=== PATIENT | female | born 1930 | race Caucasian/White ===

== ENCOUNTER 2017-10-27 09:44 | Emergency (ER) | payer MEDICARE, OTHER ==
[~2017-10-27] VITALS: Ht 165.1 cm; Wt 55.0 kg
[~2017-10-27 09:44] MED LIST: ALPR0.254 PO; APIX5TAB3 PO; ASPI-482 PO; CHOL100013 PO; CLOP75TA PO; DILT180C2 PO; DOCU100C28 PO; DULO60CA6 PO; ESOM40CA PO; FLUT1DIS3 IH; FOLI1TAB16 PO; FURO20TA3 PO; INDA1.25 PO; IPRA3AMP29 IH; LEVO25TA4 PO; LEVO500T8 PO; MAGN2400 PO; MAGN400C PO; METH25VI27 IJ; METO-239 PO; MORP15TA3 PO; OMEG1CAP6 PO; POTA20TA4 PO; PRAV40TA2 PO; PRED5TAB19 PO
--- NOTE | 2017-10-27 10:14 | PHYS DOC ---
Past History Past Medical History: Arthritis, CVA, Hypertension, Other Past Surgical History: Hip Replacement, Hysterectomy Alcohol Use: None Drug Use: None Laceration Repair Lac Repair Indication: right hand laceration between 1st and 2nd digits Procedure: The patient was placed in the appropriate position and anesthesia around the laceration with 2% lidocaine. The area was then cleaned and the clot was removed. The laceration was closed with five 4-0 nylon sutures. The wound area was then dressed. Total repaired wound length: 4cm The patient tolerated the procedure well Complications: none. Adult General Chief Complaint Chief Complaint: LACERATION/AVULSION [facility] Patient is an 87-year-old female who presents for a right hand injury with swelling and a laceration. The patient states that she fell and hit her hand on the way down. She is here with a neighbor who states that he found her with the injury and does not know exactly what happened. She has significant rheumatoid arthritis in both hands so has swelling at baseline. She is unsure if she is up- to-date with her tetanus. There is a laceration to the right hand between the first and second digits and there is some ecchymosis to the back of the hand and some swelling. She is alert, calm, and appears to be in no distress. She states she is UTD with immunizations. She denies hitting her head and has no SONG or neck pain. Review of Systems Review of Systems Constitutional: Denies fever or chills [] Eyes: Denies change in visual acuity, redness, or eye pain [] HENT: Denies nasal congestion or sore throat [] Respiratory: Denies cough or shortness of breath [] Cardiovascular: No additional information not addressed in HPI [] GI: Denies abdominal pain, nausea, vomiting, bloody stools or diarrhea [] : Denies dysuria or hematuria [] Musculoskeletal: Denies back pain [] right hand swelling, pain, and laceration between 1st and 2nd fingers Integument: Denies rash or skin lesions [] Neurologic: Denies headache, focal weakness or sensory changes [] Endocrine: Denies polyuria or polydipsia [] All other systems were reviewed and found to be within normal limits, except as documented in this note. Allergies Allergies Allergies Coded Allergies Type Severity Reaction Last Updated Verified Penicillins Allergy Unknown 12/30/13 Yes Physical Exam Physical Exam Constitutional: Well developed, well nourished, no acute distress, non-toxic appearance. [] HENT: Normocephalic, atraumatic, bilateral external ears normal, oropharynx moist, no oral exudates, nose normal. [] Eyes: PERRLA, EOMI, conjunctiva normal, no discharge. [] Neck: Normal range of motion, no tenderness, supple, no stridor. [] Cardiovascular:Heart rate regular rhythm, no murmur [] Lungs & Thorax: Bilateral breath sounds clear to auscultation [] Abdomen: Bowel sounds normal, soft, no tenderness, no masses, no pulsatile masses. [] Skin: Warm, dry, no erythema, no rash. [] Back: No tenderness, no CVA tenderness. [] Extremities: No tenderness, no cyanosis, no clubbing, ROM intact, no edema. [] 4cm laceration/skin tear with dark clot in place between 1st and 2nd digits of right hand, ecchymosis and swelling to right hand on extensor surface near 1st and 2nd metacarpals, no tendon or vascular injury noted Neurologic: Alert and oriented X 3, normal motor function, normal sensory function, no focal deficits noted. [] Psychologic: Affect normal, judgement normal, mood normal. [] EKG EKG [] Radiology/Procedures Radiology/[place] [address] IMAGING REPORT Signed PATIENT: SHAYY KIMBALL ACCOUNT: [id number] : 1930 LOCATION: ER AGE: 87 SEX: F EXAM STATUS: REG ER ORD. PHYSICIAN: TOMMY HAUSER DO REASON: right hand pain, swelling, laceration PROCEDURE: HAND RIGHT 3V History: Bruising, large hematoma, laceration. Comparison: None. Findings: PA, lateral, and oblique views of the right hand. Frontal image is suboptimal as the 1st and 2nd digits demonstrate some overlap. Osseous structures are demineralized. There is scapholunate widening. 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 There is also severe degeneration involving the radial aspect of the carpus. 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 There is deformity of the 2nd MCP joint with marked deformity, flattening and irregularity of the metacarpal head as well as suspicion of subluxation of the 2nd MCP joint. Multiple interphalangeal joints demonstrate degeneration. No radiopaque foreign body is identified. There is evidence of soft tissue swelling of the hand and 2nd digit. Impression: 1. Limited examination. 2. Irregularity of the 2nd metacarpal head and MCP joint. Is uncertain if this is due to recent or remote trauma versus chronic inflammatory process. 3. Multiple abnormalities of the hand. See discussion above. Electronically signed by: Sarath Mcduffie MD (10/27/2017 10:50 AM) [facility] DICTATED AND SIGNED BY: SARATH MCDUFFIE MD DATE: 10/27/17 1045 CC: TOMMY HAUSER DO; GUS TALBOT ~ Course & Med Decision Making Course & Med Decision Making Pertinent Labs and Imaging studies reviewed. (See chart for details) @1210 - Patient tolerated laceration repair very well. There patient's. Dressing applied. The sutures should be removed in 10 days. Dragon Disclaimer Dragon Disclaimer This electronic medical record was generated, in whole or in part, using a voice recognition dictation system. Departure Departure: Impression: Primary Impression: Laceration of right hand Disposition: HOME, SELF-CARE Condition: STABLE Referrals: GUS TALBOT (PCP) Patient Instructions: Laceration Care, Adult Additional Instructions: Your stitches will not dissolve and should be removed in 10 days. He can follow- up with your primary care physician to have this done or taken return to the emergency department. If there is any skin redness or concern for infection please return immediately to the emergency department. Follow-up with your doctor in 2-3 days for wound check. TOMMY HAUSER DO Oct 27, 2017 10:14
[2017-10-27] MEDS ORDERED: DIPHTH,PERTUSS(ACELL),TET TOX 0.5 ML DISP.SYRIN. VAX IM ONE (10:15)
--- NOTE | 2017-10-27 10:53 | RAD ---
History: Bruising, large hematoma, laceration. Comparison: None. Findings: PA, lateral, and oblique views of the right hand. Frontal image is suboptimal as the 1st and 2nd digits demonstrate some overlap. Osseous structures are demineralized. There is scapholunate widening. 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 There is also severe degeneration involving the radial aspect of the carpus. 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 There is deformity of the 2nd MCP joint with marked deformity, flattening and irregularity of the metacarpal head as well as suspicion of subluxation of the 2nd MCP joint. Multiple interphalangeal joints demonstrate degeneration. No radiopaque foreign body is identified. There is evidence of soft tissue swelling of the hand and 2nd digit. Impression: 1. Limited examination. 2. Irregularity of the 2nd metacarpal head and MCP joint. Is uncertain if this is due to recent or remote trauma versus chronic inflammatory process. 3. Multiple abnormalities of the hand. See discussion above. Electronically signed by: Sarath Li MD (10/27/2017 10:50 AM) [facility]
[2017-10-27 11:00] VITALS: BP 126/60
== END 2017-10-27 12:30 | disposition home or self-care (01) ==
LOC: ER 09:44
DX: S61.411A Laceration without foreign body of right hand, initial encounter (principal); M06.842 Other specified rheumatoid arthritis, left hand; M06.841 Other specified rheumatoid arthritis, right hand; I10 Essential (primary) hypertension; Z86.73 Personal history of transient ischemic attack (TIA), and cerebral infarction without residual deficits; Z88.0 Allergy status to penicillin; W18.09XA Striking against other object with subsequent fall, initial encounter; Y93.89 Activity, other specified; Y99.8 Other external cause status; Y92.89 Other specified places as the place of occurrence of the external cause
CPT/HCPCS: 12002; 73130; 90471; 90715; 99284-25

== ENCOUNTER 2019-01-12 14:37 | Emergency (ER) | payer MEDICARE, OTHER ==
[~2019-01-12] VITALS: Ht 165.1 cm; Wt 59.9 kg
[~2019-01-12 14:37] MED LIST changes: +MORP-15 PO; -MORP15TA3 PO
--- NOTE | 2019-01-12 14:55 | PHYS DOC ---
Past History Past Medical History: Arthritis, CVA, Hypertension, Other Past Surgical History: No Surgical History, Hip Replacement, Hysterectomy Smoking: Non-smoker Alcohol Use: None Drug Use: None Adult General Chief Complaint Chief Complaint: MECHANICAL FALL HPI HPI Patient is a 88-year-old female presents with a right head injury. Patient has an elevated seat on her commode. It appears that the seat shifted and she pitched forward striking her head on the sink. There was no loss of consciousness. No nausea or vomiting. No neck pain. No weakness in the arms or legs. Pain is moderate. She took one of her leftover Tylenol with Codeine tablets. This has improved the pain. This happened between 10 AM and noon today.[] Review of Systems Review of Systems Constitutional: Denies fever or chills [] Eyes: Denies change in visual acuity, redness, or eye pain [] HENT: Denies nasal congestion or sore throat [] Respiratory: Denies cough or shortness of breath [] Cardiovascular: No chest pain or palpitations[] GI: Denies abdominal pain, nausea, vomiting, bloody stools or diarrhea [] : Denies dysuria or hematuria [] Musculoskeletal: Denies back pain or joint pain [] Integument: Denies rash or skin lesions [] Neurologic: Denies headache, focal weakness or sensory changes [] Endocrine: Denies polyuria or polydipsia [] All other systems were reviewed and found to be within normal limits, except as documented in this note. Allergies Allergies Allergies Coded Allergies Type Severity Reaction Last Updated Verified Penicillins Allergy Unknown 12/30/13 Yes Physical Exam Physical Exam Constitutional: Well developed, well nourished, no acute distress, non-toxic appearance. [] HENT: Normocephalic, hematoma right side of her forehead that appears 3 cm in diameter. No active bleeding. There is starting to be bruising towards the medial portion of her right eye. No Rodriguez sign. No overt raccoon eyes., bilateral external ears normal, TMs are clearno blood or fluid. Oropharynx moist, no oral exudates, nose normal. [] Eyes: PERRLA, EOMI, conjunctiva normal, no discharge. [] Neck: Normal range of motion, no tenderness, supple, no stridor. [] Cardiovascular:Heart rate regular rhythm, no murmur [] Lungs & Thorax: Bilateral breath sounds clear to auscultation [] Abdomen: Bowel sounds normal, soft, no tenderness, no masses, no pulsatile masses. [] Skin: Warm, dry, no erythema, no rash. [] Back: No tenderness, no CVA tenderness. [] Extremities: No tenderness, no cyanosis, no clubbing, ROM intact, no edema. [] Neurologic: Alert and oriented X 3, normal motor function, normal sensory function, no focal deficits noted. [] Psychologic: Affect normal, judgement normal, mood normal. [] EKG EKG [] Radiology/Procedures Radiology/Procedures PROCEDURE: CT HEAD AND CERVICAL SPINE WO CT HEAD AND CERVICAL SPINE WO History: Fall. Right forehead hematoma. Comparison: November 13, 2013 and September 18, 2007 Technique: Noncontrast CT imaging was performed of the head and cervical spine. Coronal and sagittal reconstructions were performed. Exposure: One or more of the following individualized dose reduction techniques were utilized for this examination: 1. Automated exposure control 2. Adjustment of the mA and/or kV according to patient size 3. Use of iterative reconstruction technique. Findings: Head CT: No intracranial hemorrhage. No mass effect. No hydrocephalus. Right frontal scalp hematoma. Foci of decreased attenuation within the hemispheric white matter, most often due to chronic microvascular ischemia. Mild brain parenchymal volume loss. Imaged orbits are unremarkable. Imaged paranasal sinuses and mastoid air cells are clear. No acute calvarial fracture. Cervical spine CT: Minimal grade 1 anterolisthesis C4 on C5, unchanged. T1 superior endplate chronic compression deformity, unchanged. No acute fracture. Multilevel degenerative disc disease most prominent C5-C6 and C6-C7. Multilevel facet arthropathy most advanced right C2-C3. Multifocal carious dentition. Soft tissues unremarkable. Impression: Head CT: 1. No acute intracranial abnormality. 2. Large right frontal scalp hematoma. 3. Sequela chronic microvascular ischemia and brain parenchymal volume loss. Cervical spine CT: 1. No acute fracture or subluxation of the cervical spine. 2. Multilevel cervical spondylosis.[] Course & Med Decision Making Course & Med Decision Making Pertinent Labs and Imaging studies reviewed. (See chart for details) ED course: Patient arrived, was placed in bed, and tolerated exam well. She was transported to and from radiology with any complications. After the report of the imaging findings was obtained, these were discussed with patient and family who voiced understanding. All questions were answered. She was discharged in improved condition. Medical decision making: Patient has a mild closed head injury with a hematoma. There is no evidence of skull fracture, intracranial mass or bleed, cervical spine fracture, nor spinal cord syndrome.[] Dragon Disclaimer Dragon Disclaimer This electronic medical record was generated, in whole or in part, using a voice recognition dictation system. Departure Departure: Impression: Primary Impression: Closed head injury Additional Impression: Hematoma Disposition: HOME, SELF-CARE Condition: IMPROVED Referrals: GUS TALBOT (PCP) Follow-up in 2 days Patient Instructions: Head Injury, Adult, Hematoma Additional Instructions: Follow-up with your regular doctor in 2 days. Apply warm compresses for 15 minutes at a time, at least 4 times a day to the hematoma on your forehead. Return to the ER if worsening pain, nausea or vomiting, or any other concerns. Scripts Acetaminophen With Codeine (TYLENOL WITH CODEINE #3 TABLET) 1 Each Tablet 1 TAB PO Q4-6HRS for pain, #30 TAB Prov: HOMER DUMONT DO 01/12/19 Problem Qualifiers Primary Impression: Closed head injury Encounter type: initial encounter Qualified Codes: S09.90XA - Unspecified injury of head, initial encounter HOMER DUMONT DO Jan 12, 2019 14:55
--- NOTE | 2019-01-12 15:51 | RAD ---
CT HEAD AND CERVICAL SPINE WO History: Fall. Right forehead hematoma. Comparison: November 13, 2013 and September 18, 2007 Technique: Noncontrast CT imaging was performed of the head and cervical spine. Coronal and sagittal reconstructions were performed. Exposure: One or more of the following individualized dose reduction techniques were utilized for this examination: 1. Automated exposure control 2. Adjustment of the mA and/or kV according to patient size 3. Use of iterative reconstruction technique. Findings: Head CT: No intracranial hemorrhage. No mass effect. No hydrocephalus. Right frontal scalp hematoma. Foci of decreased attenuation within the hemispheric white matter, most often due to chronic microvascular ischemia. Mild brain parenchymal volume loss. Imaged orbits are unremarkable. Imaged paranasal sinuses and mastoid air cells are clear. No acute calvarial fracture. Cervical spine CT: Minimal grade 1 anterolisthesis C4 on C5, unchanged. T1 superior endplate chronic compression deformity, unchanged. No acute fracture. Multilevel degenerative disc disease most prominent C5-C6 and C6-C7. Multilevel facet arthropathy most advanced right C2-C3. Multifocal carious dentition. Soft tissues unremarkable. Impression: Head CT: 1. No acute intracranial abnormality. 2. Large right frontal scalp hematoma. 3. Sequela chronic microvascular ischemia and brain parenchymal volume loss. Cervical spine CT: 1. No acute fracture or subluxation of the cervical spine. 2. Multilevel cervical spondylosis. Electronically signed by: Reymundo Goldstein DO (01/12/2019 3:48 PM) [id number]
[2019-01-12] MEDS ORDERED: ACET-704 PO (16:01)
[2019-01-12 16:09] VITALS: BP 170/83
== END 2019-01-12 16:03 | disposition home or self-care (01) ==
LOC: ER 14:37
DX: S00.83XA Contusion of other part of head, initial encounter (principal); R51 Headache; M19.90 Unspecified osteoarthritis, unspecified site; I10 Essential (primary) hypertension; Z86.73 Personal history of transient ischemic attack (TIA), and cerebral infarction without residual deficits; Z88.0 Allergy status to penicillin; W22.8XXA Striking against or struck by other objects, initial encounter; Y93.89 Activity, other specified; Y92.89 Other specified places as the place of occurrence of the external cause; Y99.8 Other external cause status
CPT/HCPCS: 70450; 72125; 99284-25